=== PATIENT | male | born 1980 | race Caucasian/White ===

== ENCOUNTER 2025-02-15 18:10 | Inpatient (IN) | payer OTHER ==
[~2025-02-15] VITALS: Ht 157.5 cm; Wt 75.5 kg
[2025-02-15] MEDS ORDERED: ONDANSETRON HCL 4 MG/2 ML VIAL IVP PRN (20:30)
[2025-02-15] MEDS ORDERED: IPRATROPIUM BROMIDE 0.5 MG/2.5 ML NEB SOLUTION NEB PRN (20:30)
[2025-02-15] MEDS ORDERED: ALBUTEROL SULFATE 2.5 MG/0.5 ML NEB SOLUTION NEB PRN (20:30)
[2025-02-15] MEDS ORDERED: BISACODYL 10 MG RECTAL RECTAL SUPPOSITORY PR PRN (20:30)
[2025-02-15] MEDS ORDERED: MAGNESIUM HYDROXIDE SUSPENSION 30 ML UDCUP PO PRN (20:30)
[2025-02-15 20:43] LABS: PLATELET COUNT (AUTO) 270 K/uL (150-450); RED BLOOD CELL COUNT(AUTO) 4.61 MIL/uL (4.50-5.90); RED CELL DISTRIBUTION WIDTH 14.0 % (11.5-14.5); WHITE BLOOD COUNT (AUTO) 7.2 K/uL (4.5-11.0)
[2025-02-15 21:04] LABS: CALCIUM, TOTAL 8.7 mg/dL (8.8-10.5); CREATININE 0.76 mg/dL (0.60-1.30); GLOMERULAR FILTR. RATE CALC > 60 mL/min (>60); GLUCOSE,RANDOM 109 mg/dL (70-110); SODIUM SERUM 137 mmol/L (136-145); UREA NITROGEN, BLOOD 12 mg/dL (7-18)
[2025-02-15 21:30] VITALS: BP 108/70; PULSE 53; RESP 19; TEMP 97.9; O2SAT 98
[2025-02-15] MEDS: HEPARIN SODIUM,PORCINE 5,000 UNITS/ML VIAL SQ SCH (23:57)
[2025-02-16] MEDS ORDERED: SODIUM CHLORIDE 3% 15 ML NEB SOLUTION NEB ONE (02:34)
[2025-02-16 06:31] VITALS: BP 95/68; PULSE 53; RESP 16; TEMP 98; O2SAT 99
[2025-02-16 07:50] VITALS: BP 102/62; PULSE 56; RESP 18; TEMP 97.9; O2SAT 98
[2025-02-16 09:09] LABS: MTB PCR w/Rif. Resistance-SPUT NOT DETECTED (Not Detectd)
[2025-02-16] MEDS: PANTOPRAZOLE SODIUM 40 MG DR TABLET PO SCH (09:53)
[2025-02-16 20:18] VITALS: BP 98/69; PULSE 61; RESP 18; TEMP 98.4; O2SAT 97
[2025-02-16 20:51] LABS: MTB PCR w/Rif. Resistance-SPUT NOT DETECTED (Not Detectd)
[2025-02-17 04:06] VITALS: BP 100/58; PULSE 61; RESP 17; TEMP 98.1; O2SAT 97
[2025-02-17 08:03] VITALS: BP 95/64; PULSE 51; RESP 18; TEMP 98.1; O2SAT 97
[2025-02-17 18:21] LABS: ALCOHOL, URINE DRUG SCREEN NEGATIVE (NEGATIVE); AMPHET/METH SCREEN,URINE NEGATIVE (NEGATIVE); BARBITURATE SCREEN, URINE NEGATIVE (NEGATIVE); CANNABINOID SCREEN,URINE NEGATIVE (NEGATIVE); COCAINE SCREEN,URINE NEGATIVE (NEGATIVE); METHADONE SCREEN, URINE NEGATIVE (NEGATIVE)
[2025-02-17 19:14] LABS: PH,URINE DRUG SCREEN 6.5 (5.0-8.0)
[2025-02-17 20:26] VITALS: BP 100/59; PULSE 56; RESP 18; TEMP 98.2; O2SAT 97
[2025-02-18 08:40] VITALS: BP 92/61; PULSE 54; RESP 18; TEMP 98.1; O2SAT 98
[2025-02-18 20:03] VITALS: BP 109/55; PULSE 56; RESP 17; TEMP 98.1; O2SAT 99
[2025-02-19 04:13] VITALS: BP 99/63; PULSE 53; RESP 17; TEMP 97.7; O2SAT 98
[2025-02-19 09:14] VITALS: BP 118/81; PULSE 53; RESP 18; TEMP 98.1; O2SAT 96
[2025-02-19 19:52] VITALS: BP 101/79; PULSE 66; RESP 18; TEMP 98.4; O2SAT 97
[2025-02-19] MEDS: ACETAMINOPHEN 325 MG TABLET PO PRN (20:25)
[2025-02-20] MEDS ORDERED: SODIUM CHLORIDE 0.9% 500 ML IV ONE (00:42)
[2025-02-20] MEDS: LEVOFLOXACIN 500 MG/D5% WATER 100 ML IV SCH (01:06)
[2025-02-20 04:24] VITALS: BP 105/70; PULSE 60; RESP 18; TEMP 98.1; O2SAT 97
[2025-02-20 19:35] VITALS: BP 101/61; PULSE 55; RESP 18; TEMP 98.2; O2SAT 98
[2025-02-21 04:35] VITALS: BP 106/71; PULSE 58; RESP 18; TEMP 97.5; O2SAT 98
[2025-02-21 05:08] LABS: QUANTIFERON+, Nil Value 0.54 IU/mL; QUANTIFERON+,Mitogen Value >10.00 IU/mL; QUANTIFERON+,TB1 Antigen Value >10.00 IU/mL; QUANTIFERON+,TB2 Antigen Value >10.00 IU/mL; QUANTIFERON, TB GOLD PLUS Positive (Negative)
[2025-02-21 08:25] VITALS: BP 105/66; PULSE 53; RESP 18; TEMP 98.2; O2SAT 100
[2025-02-21 20:00] VITALS: BP 102/70; PULSE 60; RESP 18; TEMP 98.2; O2SAT 98
[2025-02-21 20:23] LABS: PLATELET COUNT (AUTO) 285 K/uL (150-450); RED BLOOD CELL COUNT(AUTO) 4.85 MIL/uL (4.50-5.90); RED CELL DISTRIBUTION WIDTH 14.2 % (11.5-14.5); WHITE BLOOD COUNT (AUTO) 6.7 K/uL (4.5-11.0)
[2025-02-21 20:34] LABS: CALCIUM, TOTAL 8.9 mg/dL (8.8-10.5); CREATININE 0.76 mg/dL (0.60-1.30); GLOMERULAR FILTR. RATE CALC > 60 mL/min (>60); GLUCOSE,RANDOM 120 mg/dL (70-110); SODIUM SERUM 138 mmol/L (136-145); UREA NITROGEN, BLOOD 15 mg/dL (7-18)
[2025-02-21 20:41] LABS: ASPARTATE AMINOTRANSFERASE 74 U/L (15-37); TOTAL PROTEIN, SERUM 8.2 g/dL (6.4-8.2)
[2025-02-22 05:37] VITALS: BP 92/72; PULSE 56; RESP 18; TEMP 98.2; O2SAT 97
[2025-02-22 06:28] LABS: PLATELET COUNT (AUTO) 278 K/uL (150-450); RED BLOOD CELL COUNT(AUTO) 4.69 MIL/uL (4.50-5.90); RED CELL DISTRIBUTION WIDTH 14.0 % (11.5-14.5); WHITE BLOOD COUNT (AUTO) 5.9 K/uL (4.5-11.0)
[2025-02-22 08:27] VITALS: BP 99/72; PULSE 60; RESP 18; TEMP 98.1; O2SAT 98
[2025-02-22 20:00] VITALS: BP 102/68; PULSE 62; RESP 18; TEMP 98.4; O2SAT 96
[2025-02-23 04:27] VITALS: BP 95/68; PULSE 60; RESP 19; TEMP 98.4; O2SAT 97
[2025-02-23 06:07] LABS: HEPATITIS C AB (EIA) Non Reactive (Non Reactive)
[2025-02-23 07:57] VITALS: BP 96/68; PULSE 59; RESP 18; TEMP 97.5; O2SAT 99
[2025-02-23 19:54] VITALS: BP 107/68; PULSE 60; RESP 18; TEMP 97.9; O2SAT 97
[2025-02-24 04:00] VITALS: BP 101/68; PULSE 60; RESP 18; TEMP 98.2; O2SAT 100
[2025-02-24 07:56] VITALS: BP 104/68; PULSE 51; RESP 18; TEMP 98.1; O2SAT 100
[2025-02-24 12:00] LABS: GLUCOMETER DEV NAME(LOC) 4E.2; GLUCOSE,POINT OF CARE 72 MG/DL (70-110)
[2025-02-24 20:05] VITALS: BP 105/68; PULSE 54; RESP 18; TEMP 98.2; O2SAT 98
[2025-02-25 04:10] VITALS: BP 105/69; PULSE 55; RESP 17; TEMP 97.7; O2SAT 97
[2025-02-25 08:42] VITALS: BP 100/69; PULSE 69; RESP 18; TEMP 98.1; O2SAT 100
[2025-02-25 19:49] VITALS: BP 110/69; PULSE 56; RESP 17; TEMP 98.1; O2SAT 97
[2025-02-26 09:12] VITALS: BP 107/66; PULSE 78; RESP 18; TEMP 98.1; O2SAT 98
[2025-02-26 20:23] VITALS: BP 117/54; PULSE 55; RESP 16; TEMP 97.9; O2SAT 98
[2025-02-27 04:49] VITALS: BP 104/74; PULSE 64; RESP 17; TEMP 97.7; O2SAT 98
[2025-02-27 08:00] VITALS: BP 99/58; PULSE 51; RESP 18; TEMP 97.9; O2SAT 100
[2025-02-27] MEDS ORDERED: MIDAZOLAM HCL 2 MG/2 ML VIAL ONE (09:45)
[2025-02-27] MEDS ORDERED: FentaNYL CITRATE PF 100 MCG/2 ML VIAL ONE (09:45)
[2025-02-27] MEDS: SODIUM CHLORIDE 0.9% 1,000 ML IV ONE (10:16)
[2025-02-27] MEDS ORDERED: SODIUM CHLORIDE 0.9% 1,000 ML ONE (10:25)
[2025-02-27 10:45] VITALS: PULSE 61; RESP 16; O2SAT 98
[2025-02-27] MEDS ORDERED: LIDOCAINE 2% 11 ML JELLY ONE (12:00)
[2025-02-27] MEDS ORDERED: LIDOCAINE 4% 50 ML SOLUTION ONE (12:00)
[2025-02-27] MEDS ORDERED: BENZOCAINE 20% 50 MCG/SPRAY 57 GM ONE (12:00)
[2025-02-27 20:06] VITALS: BP 95/64; PULSE 69; RESP 17; TEMP 98.2; O2SAT 97
[2025-02-28 09:12] VITALS: BP 104/64; PULSE 58; RESP 16; TEMP 98.1; O2SAT 97
[2025-02-28 18:47] LABS: PLATELET COUNT (AUTO) 272 K/uL (150-450); RED BLOOD CELL COUNT(AUTO) 4.80 MIL/uL (4.50-5.90); RED CELL DISTRIBUTION WIDTH 13.8 % (11.5-14.5); WHITE BLOOD COUNT (AUTO) 6.5 K/uL (4.5-11.0)
[2025-02-28 20:00] VITALS: BP 94/51; PULSE 63; RESP 18; TEMP 98.1; O2SAT 97
[2025-03-01 04:00] VITALS: BP 103/71; PULSE 57; RESP 18; TEMP 98.4; O2SAT 96
[2025-03-01] MEDS ORDERED: MIDAZOLAM HCL 2 MG/2 ML VIAL ONE (08:32)
[2025-03-01] MEDS ORDERED: FentaNYL CITRATE PF 100 MCG/2 ML VIAL ONE (08:32)
[2025-03-01] MEDS ORDERED: LIDOCAINE/PF 1% 30 ML VIAL ONE (08:32)
[2025-03-01 08:42] VITALS: BP 106/76; PULSE 60; RESP 18; TEMP 98.2; O2SAT 100
[2025-03-01] MEDS: MIDAZOLAM HCL 2 MG/2 ML VIAL IVP ONE ×2 (10:46→10:47)
[2025-03-01] MEDS: FentaNYL CITRATE PF 100 MCG/2 ML VIAL IVP ONE ×2 (10:46→10:47)
[2025-03-01] MEDS: LIDOCAINE 1% 30 ML/SOD BICARB 8.4% 4 ML SQ ONE (10:47)
[2025-03-01] MEDS: MORPHINE SULFATE 4 MG/ML SYRINGE IVP ONE (13:58)
[2025-03-01 13:59] VITALS: BP 103/68; PULSE 60; RESP 18; TEMP 98; O2SAT 97
[2025-03-01 20:26] VITALS: BP 101/70; PULSE 61; RESP 18; TEMP 98.1; O2SAT 97
[2025-03-01] MEDS: ZOLPIDEM TARTRATE 5 MG TABLET PO PRN (23:55)
[2025-03-02 05:27] VITALS: BP 100/72; PULSE 59; RESP 18; TEMP 97.9; O2SAT 96
[2025-03-02 08:00] VITALS: BP 103/75; PULSE 63; RESP 19; TEMP 98.1; O2SAT 98
[2025-03-02 11:00] LABS: PLATELET COUNT (AUTO) 249 K/uL (150-450); RED BLOOD CELL COUNT(AUTO) 4.62 MIL/uL (4.50-5.90); RED CELL DISTRIBUTION WIDTH 14.2 % (11.5-14.5); WHITE BLOOD COUNT (AUTO) 5.2 K/uL (4.5-11.0)
[2025-03-02 11:10] LABS: CALCIUM, TOTAL 8.6 mg/dL (8.8-10.5); CREATININE 0.71 mg/dL (0.60-1.30); GLOMERULAR FILTR. RATE CALC > 60 mL/min (>60); GLUCOSE,RANDOM 97 mg/dL (70-110); SODIUM SERUM 139 mmol/L (136-145); UREA NITROGEN, BLOOD 13 mg/dL (7-18)
[2025-03-02 11:15] LABS: ASPARTATE AMINOTRANSFERASE 28 U/L (15-37); TOTAL PROTEIN, SERUM 7.5 g/dL (6.4-8.2)
[2025-03-02 16:07] LABS: COCCIDIOIDES BY CF(UCDAVIS) Negative; COCCIDIOIDES IMMUNODIF-UCDAVIS Negative
[2025-03-02 20:12] VITALS: BP 105/71; PULSE 61; RESP 18; TEMP 98.4; O2SAT 95
[2025-03-03 05:59] VITALS: BP 124/82; PULSE 60; RESP 18; TEMP 98.1; O2SAT 96
[2025-03-03 08:15] VITALS: BP 113/76; PULSE 58; RESP 18; TEMP 98.2; O2SAT 96
[2025-03-03] MEDS: PYRAZINAMIDE 500 MG TABLET PO SCH (18:06)
[2025-03-03] MEDS: ISONIAZID 300 MG TABLET PO SCH (18:07)
[2025-03-03] MEDS: PYRIDOXINE HCL 50 MG TABLET PO SCH (18:08)
[2025-03-03] MEDS: ETHAMBUTOL HCL 400 MG TABLET PO SCH (18:08)
[2025-03-03 20:25] VITALS: BP 113/77; PULSE 60; RESP 19; TEMP 97.7; O2SAT 97
[2025-03-04 04:15] VITALS: BP 100/74; PULSE 56; RESP 18; TEMP 97.9; O2SAT 98
[2025-03-04 08:36] VITALS: BP 109/76; PULSE 57; RESP 18; TEMP 97.7; O2SAT 98
[2025-03-04 20:10] VITALS: BP 102/65; PULSE 62; RESP 18; TEMP 98.1; O2SAT 96
[2025-03-05 05:37] VITALS: BP 97/70; PULSE 59; RESP 18; TEMP 97.9; O2SAT 98
[2025-03-05 09:43] VITALS: BP 106/78; PULSE 59; RESP 18; TEMP 97.7; O2SAT 96
[2025-03-05 20:00] VITALS: BP 97/60; PULSE 64; RESP 18; TEMP 98.4; O2SAT 97
[2025-03-06 04:00] VITALS: BP 99/65; PULSE 59; RESP 18; TEMP 98.2; O2SAT 98
[2025-03-06 08:38] VITALS: BP 102/69; PULSE 55; RESP 18; TEMP 98.1; O2SAT 97
[2025-03-06 11:00] LABS: PLATELET COUNT (AUTO) 273 K/uL (150-450); RED BLOOD CELL COUNT(AUTO) 4.76 MIL/uL (4.50-5.90); RED CELL DISTRIBUTION WIDTH 14.2 % (11.5-14.5); WHITE BLOOD COUNT (AUTO) 5.2 K/uL (4.5-11.0)
[2025-03-06 11:36] LABS: CALCIUM, TOTAL 8.9 mg/dL (8.8-10.5); CREATININE 0.74 mg/dL (0.60-1.30); GLOMERULAR FILTR. RATE CALC > 60 mL/min (>60); GLUCOSE,RANDOM 121 mg/dL (70-110); SODIUM SERUM 138 mmol/L (136-145); UREA NITROGEN, BLOOD 14 mg/dL (7-18)
[2025-03-06 15:05] LABS: ASPARTATE AMINOTRANSFERASE 33.0 U/L (15-37); TOTAL PROTEIN, SERUM 8.5 g/dL (6.4-8.2)
[2025-03-06 20:00] VITALS: BP 108/75; PULSE 63; RESP 18; TEMP 98.2; O2SAT 97
[2025-03-07 04:00] VITALS: BP 106/58; PULSE 54; RESP 18; TEMP 98.2; O2SAT 98
[2025-03-07 08:30] VITALS: BP 115/89; PULSE 59; RESP 19; TEMP 97.7; O2SAT 100
[2025-03-07 19:54] VITALS: BP 108/80; PULSE 63; RESP 18; TEMP 98.2; O2SAT 97
[2025-03-08 04:50] VITALS: BP 103/76; PULSE 60; RESP 18; TEMP 98.2; O2SAT 100
[2025-03-08 08:29] VITALS: BP 103/73; PULSE 56; RESP 18; TEMP 97.7; O2SAT 100
[2025-03-08] MEDS ORDERED: ISON300T90 PO (10:14)
[2025-03-08] MEDS ORDERED: ETHA400T25 PO (10:14)
[2025-03-08] MEDS ORDERED: PYRA500T33 PO (10:16)
[2025-03-08] MEDS ORDERED: PYRI-9 PO (10:17)
[2025-03-08] MEDS ORDERED: ACET-2247 PO (10:20)
[2025-03-08] MEDS ORDERED: RIFA300C63 PO (10:24)
== END 2025-03-08 16:40 | DRG 179 ==
LOC: EMS 18:14 → EDH 20:30 → 6N 21:30
PROVIDERS: ADMIT Hospitalist; ATTEND Hospitalist
PROC: 0B988ZZ Drainage of Left Upper Lobe Bronchus, Via Natural or Artificial Opening Endoscopic (ICD-10-PCS; 2025-02-27)
PROC: 0BBJ3ZX Excision of Left Lower Lung Lobe, Percutaneous Approach, Diagnostic (ICD-10-PCS; principal; 2025-03-01)
DX: A15.9 Respiratory tuberculosis unspecified (principal); J15.69 Pneumonia due to other Gram-negative bacteria; E66.9 Obesity, unspecified; J47.9 Bronchiectasis, uncomplicated; R79.89 Other specified abnormal findings of blood chemistry; R91.8 Other nonspecific abnormal finding of lung field; Z78.9 Other specified health status; Z87.891 Personal history of nicotine dependence; Z68.30 Body mass index [BMI] 30.0-30.9, adult
CPT/HCPCS: 31624; 32408; 71045; 71046; 71250; 76705; 80048; 80053; 80307; 82248; 82962; 85025; 85610; 85730; 86403; 86480; 86803; 87015; 87070; 87101; 87206; 87220; 87340; 87389; 87556; 87566; 88108; 88305; 94640; 99285; J1644; J1956; J2250; J2270; J3010; J3490; J7030; J7040; 36415-L1; 36415-TC; Z7610